=== PATIENT | male | born 1995 | race Caucasian/White ===

== ENCOUNTER 2023-11-14 11:53 | Inpatient (IN) | payer OTHER ==
[2023-11-14 12:55] VITALS: BMI 20.7
[2023-11-14] MEDS ORDERED: NALOXONE (NARCAN) HCL 4 MG/0.1 ML SPRAY NS PRN (13:27)
[2023-11-14] MEDS ORDERED: POLYETHYLENE GLYCOL (HEALTHYLAX) 3350 17 GM PACKET PO PRN (13:27)
[2023-11-14] MEDS ORDERED: MAGNESIUM HYDROX 2400MG/30ML ORAL SUSPENSION 30 ML CUP PO PRN (13:27)
[2023-11-14] MEDS ORDERED: ONDANSETRON *ODT* 4 MG TABLET SL PRN (13:27)
[2023-11-14] MEDS ORDERED: IBUPROFEN 400 MG TABLET (FP) PO PRN (13:27)
[2023-11-14] MEDS ORDERED: NALOXONE HCL 0.4 MG/ML VIAL IM PRN (13:27)
[2023-11-14] MEDS ORDERED: guaiFENesin 600 MG TABLET.ER (FP) PO PRN (13:27)
[2023-11-14] MEDS ORDERED: LOPERAMIDE HCL 2 MG CAPSULE PO PRN (13:27)
[2023-11-14] MEDS ORDERED: MAG HYDROX/AL HYDROX/SIMETH 30 ML UNIT-DOSE CUP PO PRN (13:27)
[2023-11-14] MEDS ORDERED: BISMUTH SUBSALICYLATE 262 MG/15 ML BTL PO PRN (13:27)
[2023-11-14] MEDS ORDERED: BENZOCAINE/MENTHOL (CHLORASEPTIC ) LOZENGE MM PRN (13:27)
[2023-11-14] MEDS ORDERED: hydrOXYzine PAMOATE 25 MG CAPSULE (FP) PO PRN (13:27)
[2023-11-14] MEDS ORDERED: DICYCLOMINE HCL 10 MG CAPSULE PO PRN (13:27)
[2023-11-14] MEDS ORDERED: ACETAMINOPHEN 325 MG TABLET (FP) PO PRN (13:27)
[2023-11-14] MEDS ORDERED: METHOCARBAMOL 500 MG TABLET PO PRN (13:27)
[2023-11-14] MEDS ORDERED: IBUPROFEN 600 MG TABLET (FP) PO PRN (13:27)
[2023-11-14] MEDS ORDERED: BENZONATATE 200 MG CAPSULE PO PRN (13:27)
[2023-11-14] MEDS: methaDONE HCL 10 MG TABLET (FOR DETOX USE ONLY) PO ONE (13:52)
[2023-11-14] MEDS: PRENATAL VITAMINS W/ FOLIC ACID TABLET (FP) PO SCH (13:53)
[2023-11-14] MEDS: BUPRENORPHINE/NALOXONE 0.5 MG/0.125 MG FILM SL ONE ×2 (13:53→23:24)
[2023-11-14] MEDS: NICOTINE 21 MG/24 HOURS TOPICAL PATCH TD SCH (13:53)
[2023-11-14] MEDS: cloNIDine HCL 0.1 MG TABLET PO SCH (14:43)
[2023-11-14] MEDS: diazePAM 5 MG TABLET PO SCH (17:17)
[2023-11-14] MEDS: THIAMINE 100 MG TABLET PO SCH (23:23)
[2023-11-14] MEDS: MELATONIN 5 MG TABLETS PO SCH (23:23)
[2023-11-15] MEDS: BUPRENORPHINE/NALOXONE 0.5 MG/0.125 MG FILM SL SCH (09:48)
[2023-11-15 11:43] LABS: HEMOGLOBIN 11.6 GM/dL (11.7-16.9); MCH 24.4 pg (25.7-33.7); MEAN CELL VOLUME 74.1 fl (80-96); MEAN PLT VOLUME 8.2 fl (7.5-11.1); PLATELET COUNT 394 10^3/uL (134-434); RBC 4.73 M/mm3 (4.00-5.60); RDW 16.6 % (11.9-15.9)
[2023-11-15 11:53] LABS: POTASSIUM 3.8 mmol/L (3.5-5.1)
[2023-11-15 12:02] LABS: CALCIUM 9.1 mg/dL (8.5-10.1)
[2023-11-15 12:03] LABS: ALBUMIN 3.5 g/dl (3.4-5.0); BLOOD UREA NITROGEN 14.3 mg/dL (7-18)
[2023-11-15 12:05] LABS: CREATININE 0.8 mg/dL (0.55-1.3)
[2023-11-15 12:07] LABS: BILIRUBIN,TOTAL 0.6 mg/dL (0.2-1); TOT PROT 8.4 g/dl (6.4-8.2)
[2023-11-16] MEDS: diazePAM 5 MG TABLET PO SCH (05:26)
[2023-11-16] MEDS: methaDONE HCL 10 MG TABLET (FOR DETOX USE ONLY) PO ONE (09:55)
[2023-11-16] MEDS: BUPRENORPHINE/NALOXONE 2 MG/0.5 MG FILM PACKET SL SCH (09:56)
[2023-11-16] MEDS: diazePAM 5 MG TABLET PO PRN (17:28)
[2023-11-17] MEDS: diazePAM 5 MG TABLET PO SCH (05:24)
[2023-11-17] MEDS: BUPRENORPHINE/NALOXONE 4 MG/1 MG FILM PACKET SL SCH (09:44)
[2023-11-17] MEDS: LACTULOSE 20 GM/30 ML UDC (FOR ORAL USE ONLY) PO SCH (11:50)
[2023-11-17 12:53] VITALS: BP 128/83; PULSE 101; RESP 18; TEMP 97.5
[2023-11-18] MEDS ORDERED: diazePAM 5 MG TABLET PO ONE (06:00)
[2023-11-18] MEDS ORDERED: methaDONE HCL 10 MG TABLET (FOR DETOX USE ONLY) PO ONE (10:00)
[2023-11-18] MEDS ORDERED: BUPRENORPHINE/NALOXONE 8 MG/2 MG FILM PACKET SL SCH (10:00)
[2023-11-19] MEDS ORDERED: BUPRENORPHINE/NALOXONE 8 MG/2 MG FILM PACKET SL SCH (10:00)
== END 2023-11-17 10:07 | disposition home or self-care (01) | DRG 773 ==
LOC: YASAS 11:53 → Y6N 13:50
PROVIDERS: ADMIT Allergy & Immunology; ATTEND Surgery
PROC: HZ2ZZZZ Detoxification Services for Substance Abuse Treatment (ICD-10-PCS; principal; 2023-11-14)
DX: F11.23 Opioid dependence with withdrawal (principal); F10.230 Alcohol dependence with withdrawal, uncomplicated; F14.20 Cocaine dependence, uncomplicated; F17.210 Nicotine dependence, cigarettes, uncomplicated; F19.282 Other psychoactive substance dependence with psychoactive substance-induced sleep disorder; F41.9 Anxiety disorder, unspecified; R79.89 Other specified abnormal findings of blood chemistry
CPT/HCPCS: 36415; 80053; 80305; 80307; 82140; 85027; 86780; 93005; 93010